=== PATIENT | female | born 1965 | race Caucasian/White ===

== ENCOUNTER 2017-10-28 23:25 | Emergency (ER) | payer OTHER ==
--- NOTE | 2017-10-28 23:35 | PDOC ---
History of Present Illness - General Chief Complaint: Redness To Affected Area Stated Complaint: LT LEG REDNESS History Source: Patient - History of Present Illness Initial Comments: 10/29/17 01:52 lle symptoms ever since vein stripping procedure Timing/Duration: other (1 month) Modifying Factors: worse with: immobilization, medication Associated Symptoms: reports: rash. denies: fever/chills Past History - Past Medical History Allergies/Adverse Reactions: Allergies Allergy/AdvReac Type Severity Reaction Status Date / Time No Known Allergies Allergy Unverified 10/28/17 23:26 Home Medications: Ambulatory Orders Buprenorphine HCl/Naloxone HCl [Suboxone 8 mg-2 mg Sl Tablets] 3 each SL DAILY 10/28/17 Clindamycin [Cleocin -] 300 mg PO BID 10/28/17 Clindamycin [Cleocin -] 300 mg PO Q6HPO #40 capsule 10/28/17 Clonazepam [Klonopin] 2 mg PO DAILY 10/28/17 Gabapentin [Neurontin] 800 mg PO TID 10/28/17 Levothyroxine [Synthroid -] 100 mcg PO DAILY 10/28/17 Lisinopril 10 mg PO DAILY 10/28/17 Simvastatin 20 mg PO DAILY 10/28/17 Review of Systems - Review of Systems All Other Systems: Reviewed and Negative *Physical Exam - Physical Exam General Appearance: Yes: Nourished, Appropriately Dressed Respiratory/Chest: positive: Lungs Clear Cardiovascular: positive: Regular Rhythm Gastrointestinal/Abdominal: negative: Tender Lymphatic: negative: Adenopathy Musculoskeletal: positive: Normal Inspection Extremity: positive: Other (LLE with eryhtema and weeping overlying dermatitis) Neurologic: positive: Fully Oriented Medical Decision Making - Medical Decision Making 10/29/17 01:54 superinfected dermatitis abx supportive care *DC/Admit/Observation/Transfer Diagnosis at time of Disposition: Cellulitis Qualifiers: Site of cellulitis: extremity Site of cellulitis of extremity: lower extremity Laterality: left Qualified Code(s): L03.116 - Cellulitis of left lower limb - Discharge Dispostion Disposition: HOME Condition at time of disposition: Stable - Prescriptions Prescriptions: Clindamycin [Cleocin -] 300 mg PO Q6HPO #40 capsule - Referrals - Patient Instructions Printed Discharge Instructions: DI for Cellulitis -- Adult - Post Discharge Activity
[2017-10-28 23:41] VITALS: BP 113/66; PULSE 86; TEMP 99.2; BMI 39.3
== END 2017-10-28 23:58 | disposition home or self-care (01) ==
LOC: FER 23:25
DX: L03.116 Cellulitis of left lower limb (principal)
CPT/HCPCS: 99281-25